=== PATIENT | female | born 1955 | race Two or more races ===

== ENCOUNTER 2024-03-12 07:16 | Inpatient (IN) | payer OTHER ==
[~2024-03-12] VITALS: Ht 162.6 cm; Wt 68.0 kg
[~2024-03-12 07:16] MED LIST: ATORVASTATIN CA20 MG PO; GLIPIZIDE XL5 MG; METFORMIN HCL500 M4 PO; SIMVASTATIN5 MG
--- NOTE | 2024-03-12 07:30 | NUR ---
PTE ALERTA Y ORIENTADA X3. REFIERE DOLOR DE ESPALDA BAJA QUE IRRADIA A EXTREMIDADES INFERIORES DESDE SAIMA EN LA NOCHE. PTE REFIERE DOLOR DE HOMBRO LINDSAY. SE LUNA SV Y SE UBICA
--- NOTE | 2024-03-12 09:38 | NUR ---
RN VALLES ORIENTA A PTE SOBRE TRATAMIENTO E INSTRUCCIONES A SEGUIR, LEOBARDO REFIERE ENTENDER. SE COLECTA MUESTRAS, SE CANALIZA Y SE ADMINISTRA MEDICAMENTO JABIER ORDEN MEDICA
[2024-03-12] MEDS ORDERED: KETOROLAC TROMETHAMINE 30 MG VIAL IV ONE (09:45)
[2024-03-12] MEDS ORDERED: 0.9 % SODIUM CHLORIDE 1,000 ML IV SCH (09:45)
[2024-03-12] MEDS ORDERED: ONDANSETRON HCL 2 MG/ML VIAL IV ONE (09:45)
[2024-03-12 10:25] LABS: HEMATOCRIT 42.8 % (36.0-45.00); HEMOGLOBIN 14.4 g/dL (12.0-15.00); MEAN CELL VOLUME 82.6 fL (80.00-100.00); MEAN CORPUSCULAR HEMOGLOBIN 27.7 pg (27.00-32.0); MEAN CORPUSCULAR HGB CONC 33.6 g/dl (32.0-36.0); PLATELET COUNT 181 K/uL (150-450); RED BLOOD COUNT 5.18 M/uL (4.00-6.00); RED CELL DISTRIBUTION WIDTH 13.5 % (11.5-14.5)
[2024-03-12 10:55] LABS: PH,URINE 7.5 (5.0-8.0); URINE APPEARANCE Clear; URINE BILIRRUBIN Negative (NEGATIVE); URINE BLOOD Negative; URINE COLOR Yellow; URINE GLUCOSE Negative (NEGATIVE); URINE LEUKOCYTE Small; URINE NITRATE Negative; URINE PROTEIN Negative (NEGATIVE)
[2024-03-12 11:00] LABS: URINE BACTERIA 469.9 uL (0.0-1933); URINE EPITHELIAL CELLS 19.3 uL (0.0-38.8); URINE WBC 60.1 uL (0.0-23.2)
[2024-03-12 11:07] LABS: URINE RBC 1.8 uL (0.0-20.8)
[2024-03-12 12:29] LABS: ALBUMIN 3.5 gm/dL (3.4-5.0); BILIRUBIN TOTAL 0.3 mg/dL (0.3-1.2); CALCIUM 8.7 mg/dL (8.5-10.1); CREATININE SERUM 0.66 mg/dL (0.55-1.02); GFR 89.33; GLOBULINA 3.3 G/DL (2.4-3.5); POTASSIUM 3.91 mEq/L (3.5-5.1); TOTAL PROTEIN 6.8 gm/dL (6.4-8.2)
[2024-03-12] MEDS ORDERED: KETO10TA2 PO (12:56)
[2024-03-12] MEDS ORDERED: CIPRO500 MG PO (12:56)
[2024-03-12] MEDS ORDERED: TAMS0.4C PO (12:56)
[2024-03-12] MEDS ORDERED: ONDANSETRON HCL 4 MG in DEXTROSE 5 % IN WATER 50 ML IV PRN (13:45)
[2024-03-12] MEDS ORDERED: TAMSULOSIN HCL 0.4 MG CAP PO SCH (13:45)
[2024-03-12] MEDS ORDERED: INSULIN LISPRO 1,000 UNIT/10 ML UNITS SUBCUTANEO PRN (13:45)
[2024-03-12] MEDS ORDERED: MORPHINE SULFATE 2 MG/ML CARTRIDGE IV PRN (13:45)
[2024-03-12] MEDS ORDERED: DEXTROSE 50 % IN WATER 0.5 G/ML DISP.SYRIN IV PRN (13:45)
[2024-03-12] MEDS ORDERED: RINGERS SOLUTION,LACTATED 1,000 ML IV SCH (14:00)
[2024-03-12] MEDS ORDERED: KETOROLAC TROMETHAMINE 30 MG VIAL IV SCH (17:00)
[2024-03-12] MEDS ORDERED: ATORVASTATIN CALCIUM 40 MG TABLET PO SCH (17:00)
[2024-03-12] MEDS ORDERED: FAMOTIDINE/PF 20 MG/2 ML VIAL IV SCH (21:00)
[2024-03-13] MEDS ORDERED: LIPITOR40 M1 PO (14:53)
[2024-03-13] MEDS ORDERED: TAMS0.4C PO (14:53)
[2024-03-13] MEDS ORDERED: ZIPSOR25 MG PO (14:54)
[2024-03-13] MEDS ORDERED: PANTOPRAZOLE SO20 MG PO (14:55)
== END 2024-03-13 19:05 | disposition home or self-care (01) | DRG 694 ==
LOC: ER 07:16 → SEC-K 14:04 → SURH 14:04
PROVIDERS: General Practice; ADMIT Internal Medicine; ATTEND Internal Medicine
PROC: BT43ZZZ Ultrasonography of Bilateral Kidneys (ICD-10-PCS; principal; 2024-03-12)
PROC: BW21ZZZ Computerized Tomography (CT Scan) of Abdomen and Pelvis (ICD-10-PCS; 2024-03-12)
DX: N13.2 Hydronephrosis with renal and ureteral calculous obstruction (principal); N13.30 Unspecified hydronephrosis; N23 Unspecified renal colic; R63.8 Other symptoms and signs concerning food and fluid intake; E11.9 Type 2 diabetes mellitus without complications; E66.9 Obesity, unspecified; Z20.822 Contact with and (suspected) exposure to COVID-19; E78.5 Hyperlipidemia, unspecified

== ENCOUNTER 2024-03-18 08:13 | Outpatient (CLI) | payer OTHER ==
[~2024-03-18 08:13] MED LIST changes: +CIPRO500 MG PO; +KETO10TA2 PO; +LIPITOR40 M1 PO; +PANTOPRAZOLE SO20 MG PO; +TAMS0.4C PO; +ZIPSOR25 MG PO
== END 2024-03-18 08:19 | disposition home or self-care (01) ==
LOC: RAD 08:13
PROVIDERS: ATTEND Urology
DX: N20.1 Calculus of ureter (principal)

== ENCOUNTER → 2024-03-20 06:38 | Outpatient (CLI) | payer OTHER ==
[2024-03-20 07:27] LABS: HEMATOCRIT 41.6 % (36.0-45.00); HEMOGLOBIN 13.8 g/dL (12.0-15.00); MEAN CELL VOLUME 83.8 fL (80.00-100.00); MEAN CORPUSCULAR HEMOGLOBIN 27.8 pg (27.00-32.0); MEAN CORPUSCULAR HGB CONC 33.1 g/dl (32.0-36.0); PLATELET COUNT 191 K/uL (150-450); RED BLOOD COUNT 4.96 M/uL (4.00-6.00); RED CELL DISTRIBUTION WIDTH 13.6 % (11.5-14.5)
[2024-03-20 07:52] LABS: INR 0.98; PARTIAL THROMBOPLASTIN TIME 28.5 SECONDS (22.0-34.0); PROTHROMBIN TIME 10.3 SECONDS (9.0-11.5)
[2024-03-20 08:17] LABS: CALCIUM 8.8 mg/dL (8.5-10.1); CREATININE SERUM 0.67 mg/dL (0.55-1.02); GFR 87.79; POTASSIUM 4.36 mEq/L (3.5-5.1)
[2024-03-20 09:08] LABS: URINE APPEARANCE Clear; URINE BILIRRUBIN Negative (NEGATIVE); URINE BLOOD Negative; URINE COLOR Yellow; URINE GLUCOSE Negative (NEGATIVE); URINE LEUKOCYTE Trace; URINE NITRATE Negative; URINE PROTEIN Negative (NEGATIVE); URINE UROBILINOGEN 0.2 E.U./dl
[2024-03-20 09:09] LABS: URINE BACTERIA 1344.4 uL (0.0-1933); URINE EPITHELIAL CELLS 46.9 uL (0.0-38.8); URINE RBC 3.3 uL (0.0-20.8); URINE WBC 62.9 uL (0.0-23.2)
== END | disposition home or self-care (01) ==
LOC: LAB 06:38
PROVIDERS: ATTEND Urology
DX: N20.0 Calculus of kidney (principal); N20.1 Calculus of ureter

== ENCOUNTER 2024-04-20 08:02 | Outpatient (CLI) | payer OTHER | END 2024-04-20 08:06 | disposition home or self-care (01) | LOC: RAD 08:02 | PROVIDERS: ATTEND Urology | DX: N20.1 Calculus of ureter (principal) ==

== ENCOUNTER 2024-05-26 12:03 | Outpatient (CLI) | payer OTHER | END 2024-05-26 13:21 | disposition home or self-care (01) | LOC: SONOGRAMA 12:03 | PROVIDERS: ATTEND Internal Medicine | DX: M25.512 Pain in left shoulder (principal); M54.2 Cervicalgia ==

== ENCOUNTER 2024-11-12 11:46 | Emergency (ER) | payer OTHER ==
[~2024-11-12] VITALS: Ht 162.6 cm; Wt 83.9 kg
[2024-11-12 13:09] LABS: HEMATOCRIT 41.2 % (36.0-45.00); HEMOGLOBIN 13.8 g/dL (12.0-15.00); MEAN CELL VOLUME 82.7 fL (80.00-100.00); MEAN CORPUSCULAR HEMOGLOBIN 27.8 pg (27.00-32.0); MEAN CORPUSCULAR HGB CONC 33.6 g/dl (32.0-36.0); PLATELET COUNT 188 K/uL (150-450); RED BLOOD COUNT 4.98 M/uL (4.00-6.00); RED CELL DISTRIBUTION WIDTH 13.9 % (11.5-14.5)
[2024-11-12 13:20] LABS: CREATININE SERUM 0.69 mg/dL (0.55-1.02); GFR 84.61; POTASSIUM 3.96 mEq/L (3.5-5.1)
[2024-11-12 13:50] LABS: URINE APPEARANCE Clear; URINE BILIRRUBIN Negative (NEGATIVE); URINE BLOOD Negative; URINE COLOR Yellow; URINE GLUCOSE Negative (NEGATIVE); URINE KETONE Negative (NEGATIVE); URINE LEUKOCYTE Negative; URINE NITRATE Negative; URINE PROTEIN Negative (NEGATIVE); URINE UROBILINOGEN 0.2 E.U./dl
[2024-11-12 13:55] LABS: URINE BACTERIA 25.6 uL (0.0-1933); URINE EPITHELIAL CELLS 1.4 uL (0.0-38.8); URINE RBC 3.2 uL (0.0-20.8); URINE WBC 7.4 uL (0.0-23.2)
[2024-11-12] MEDS ORDERED: CEPHALEXIN500 M1 PO (17:58)
[2024-11-12] MEDS ORDERED: 0.9 % SODIUM CHLORIDE 1,000 ML IV SCH (18:00)
[2024-11-12] MEDS ORDERED: KETOROLAC TROMETHAMINE 30 MG VIAL IV ONE (18:00)
== END 2024-11-12 18:16 | disposition home or self-care (01) ==
LOC: ER 11:46
PROVIDERS: Emergency Medicine
DX: N20.1 Calculus of ureter (principal); R10.9 Unspecified abdominal pain; E11.9 Type 2 diabetes mellitus without complications; Z79.84 Long term (current) use of oral hypoglycemic drugs
CPT/HCPCS: 36415; 51702; 74176; 96365; 99284; J1885; J7030

== ENCOUNTER 2024-12-03 07:46 | Outpatient (CLI) | payer OTHER ==
[~2024-12-03 07:46] MED LIST changes: +CEPHALEXIN500 M1 PO
== END 2024-12-03 07:49 | disposition home or self-care (01) ==
LOC: LAB 07:46
PROVIDERS: ATTEND Urology
DX: N39.0 Urinary tract infection, site not specified (principal); N20.0 Calculus of kidney

== ENCOUNTER 2024-12-03 08:14 | Outpatient (CLI) | payer OTHER | END 2024-12-03 08:19 | disposition home or self-care (01) | LOC: TOM 08:14 | PROVIDERS: ATTEND Urology | DX: N20.0 Calculus of kidney (principal); N13.0 Hydronephrosis with ureteropelvic junction obstruction | CPT/HCPCS: 74177; Q9965 ==

== ENCOUNTER 2025-02-04 09:45 | Outpatient (CLI) | payer OTHER | END 2025-02-04 10:01 | disposition home or self-care (01) | LOC: MAMO-SONO 09:45 | PROVIDERS: ATTEND Internal Medicine | DX: N64.4 Mastodynia (principal); R92.8 Other abnormal and inconclusive findings on diagnostic imaging of breast; Z12.31 Encounter for screening mammogram for malignant neoplasm of breast ==